=== PATIENT | female | born 2000 ===

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

== ENCOUNTER 2018-04-30 15:10 | Emergency (ER) | payer MEDICAID ==
[2018-04-30 15:10] VITALS: BMI 34.5
[2018-04-30 15:40] VITALS: O2SAT 100
[2018-04-30] MEDS ORDERED: Sodium Chloride 0.9% 1,000 ML IV STA (16:05)
[2018-04-30] MEDS ORDERED: guaiFENesin DM 200 mg-20 mg/10 ml UD PO STA (16:07)
[2018-04-30 16:59] LABS: BASO % 0.3 % (0.0-2.0); EOS # 0.1 K/uL (0.0-0.7); EOS % 1.2 % (0.0-4.0); HEMOGLOBIN 14.9 g/dL (12.0-16.0); LYMPH # 1.3 K/uL (1.0-4.3); LYMPH % 12.5 % (20.0-40.0); MEAN CELL VOLUME 87.1 fl (81.0-99.0); MEAN CORPUSCULAR HEMOGLOBIN 29.3 pg (27.0-31.0); MEAN CORPUSCULAR HGB CONC 33.7 g/dL (33.0-37.0); MEAN PLATELET VOLUME 8.4 fl (7.2-11.7); MONO # 0.8 K/uL (0.0-0.8); MONO % 7.8 % (0.0-10.0); NEUT # 8.3 K/uL (1.8-7.0); NEUT % 78.2 % (50.0-75.0); RBC 5.07 Mil/uL (3.80-5.20); WHITE BLOOD COUNT 10.7 K/uL (4.8-10.8)
[2018-04-30 17:11] LABS: ALB/GLOB RATIO 1.3 (1.0-2.1); ALBUMIN 4.4 g/dL (3.5-5.0); ALT/SGPT 54 U/L (9-52); AST/SGOT 81 U/L (14-36); BLOOD UREA NITROGEN 16 mg/dl (7-17); CALCIUM 9.1 mg/dL (8.4-10.2); GFR NON-AFRICAN AMERICAN > 60; LIPASE 52 U/L (23-300)
--- NOTE | 2018-04-30 17:11 | ED PDOC ---
HPI: Abdomen Chief Complaint (Provider): GI Problem History Per: Patient History/Exam Limitations: no limitations Onset/Duration Of Symptoms: Days Outside of [place] travel?: No Associated Symptoms: Fever, Diarrhea, Back Pain. denies: Nausea, Vomiting, Urinary Symptoms Additional Complaint(s): Patient is a 18 year old female who reports of right sided back and flank pain that started today morning. She has associated symptoms such as tactile fever and x2 days of diarrhea that consisted of 6 non bloody episodes, and cough. Patient denies taking any medications prior to arrival. She denies abdominal pain, urinary symptoms, nausea, vomiting, recent travel, rash, headache, dizziness, body ache. Patient states she does have sick contact with child who has a viral respiratory infections. Otherwise: (+) fever, (+) cough, (+) diarrhea, (-) nausea, (-) vomiting, (-) rash, (-) headache, (-) dizziness, (-) body ache, (-) paresthesias, (-) weakness, (-) acute bowel or bladder dysfunction, PMD: Kings Thorne, <Letty Nichols A - Last Filed: 04/30/18 17:08> <Sommer James - Last Filed: 04/30/18 17:50> Time Seen by Provider: 04/30/18 15:50 Chief Complaint (Nursing): GI Problem Past Medical History Reviewed: Historical Data, Nursing Documentation, Vital Signs Vital Signs: Last Vital Signs Temp 97.4 F L 04/30/18 15:39 Pulse 88 04/30/18 15:39 Resp 16 04/30/18 15:39 BP 111/57 L 04/30/18 15:39 Pulse Ox 100 04/30/18 15:39 - Medical History PMH: Gall Bladder Disease (as per CC) Denies: Depression, Diabetes, HTN, Chronic Kidney Disease - Surgical History Surgical History: Cholecystectomy, Tonsillectomy - Family History Family History: States: Diabetes, Hypertension - Immunization History Hx Tetanus Toxoid Vaccination: No Hx Influenza Vaccination: No Hx Pneumococcal Vaccination: No <Letty Nichols A - Last Filed: 04/30/18 17:08> Vital Signs: Last Vital Signs Temp 97.4 F L 04/30/18 15:39 Pulse 88 04/30/18 15:39 Resp 16 1219/18 15:39 BP 111/57 L 04/30/18 15:39 Pulse Ox 100 04/30/18 17:19 <Sommer James - Last Filed: 04/30/18 17:50> - Home Medications Home Medications: Ambulatory Orders Medication Instructions Recorded No Known Home Med 08/05/17 - Allergies Allergies/Adverse Reactions: Allergies Allergy/AdvReac Type Severity Reaction Status Date / Time No Known Allergies Allergy Verified 08/05/17 11:48 Review of Systems ROS Statement: Except As Marked, All Systems Reviewed And Found Negative Constitutional: Positive for: Fever Respiratory: Positive for: Cough Gastrointestinal: Positive for: Diarrhea. Negative for: Nausea, Vomiting, Abdominal Pain Genitourinary Female: Negative for: Dysuria, Frequency, Incontinence, Hematuria Musculoskeletal: Positive for: Back Pain (//flank pain). Negative for: Other (body ache) Neurological: Negative for: Headache, Dizziness <Letty Nichols - Last Filed: 04/30/18 17:08> Physical Exam - Reviewed Nursing Documentation Reviewed: Yes Vital Signs Reviewed: Yes - Physical Exam Comments: GENERAL APPEARANCE: Patient is awake, alert, oriented x 3, in no acute distress. SKIN: Warm, dry; (-) cyanosis. EYES: (-) conjunctival pallor. ENMT: Mucous membranes moist. NECK: (-) tenderness, (-) stiffness, (-) lymphadenopathy. CHEST AND RESPIRATORY: (-) rales, (-) rhonchi, (-) wheezes; breath sounds equal bilaterally. HEART AND CARDIOVASCULAR: (-) irregularity; (-) murmur, (-) gallop. ABDOMEN AND GI: Soft; (-) tenderness; (-) palpable mass. BACK: (-) tenderness, (-) mild spasm, (-) direct bony tenderness, (-) deformity. Straight leg raising (-) bilaterally. EXTREMITIES: (-) deformity. Distal pulses good bilaterally. NEURO AND PSYCH: Mental status as above. Intact sensation bilaterally; normal strength in extension of the knees, plantar and dorsiflexion of the toes. DTRs symmetric. <Letty Nichols - Last Filed: 04/30/18 17:08> - Laboratory Results Result Diagrams: 04/30/18 16:54 - ECG O2 Sat by Pulse Oximetry: 100 (RA) Pulse Ox Interpretation: Normal <Letty Nichols - Last Filed: 04/30/18 17:08> - Laboratory Results Result Diagrams: 04/30/18 16:54 04/30/18 16:54 Urine POC: Negative Urine dip results: Positive for: Bilirubin (small), Protein (30). Negative for: Leukocyte Esterase, Blood, Nitrate, Ketones, Glucose <Sommer James - Last Filed: 04/30/18 17:50> Medical Decision Making Medical Decision Making: Time: 1605 Impression: Cough, diarrhea, probable viral illness Plan: --CMP --Lipase --ED urine --ED urine dipstick --CXR --Robitussin DM 10 ml PO --Toradol 30 mg IVP --Zofran inj 4mg IVP --Sodium chloride 1,000 ml --blood culture --influenza A B --------- -------- Scribe Attestation: Documented by Chase Blake, acting as a scribe for Sommer Perez Provider Scribe Attestation: All medical record entries made by the Scribe were at my direction and person ally dictated by me. I have reviewed the chart and agree that the record accurately reflects my personal performance of the history, physical exam, medical decision making, and the department course for this patient. I have also personally directed, reviewed, and agree with the discharge instructions and disposition. <GriceltamarHiginioalberto Uribe - Last Filed: 04/30/18 17:08> Disposition <Letty Nichols - Last Filed: 04/30/18 17:08> <Sommer James - Last Filed: 04/30/18 17:50> - Disposition Forms: [employer] (Greek)
--- NOTE | 2018-04-30 18:03 | ED PDOC ---
HPI: Back Time Seen by Provider: 04/30/18 15:50 Chief Complaint (Nursing): GI Problem Chief Complaint (Provider): Bodyaches, Cough, Diarrhea History Per: Patient History/Exam Limitations: no limitations Additional Complaint(s): Patient is a 18 year old female who reports right sided back and flank pain that started this morning. Associated symptoms include tactile fever and x2 days of diarrhea that consisted of 6 nonbloody episodes, and a dry cough. Patient denies taking any medications prior to arrival. She denies abdominal pain, urinary symptoms, nausea, vomiting, recent travel, rash, headache, dizziness. Patient states she does have sick contact, her child, who has a viral respiratory infection. PMD: Kings Thorne LMP: 04/21/18 Past Medical History Reviewed: Historical Data, Nursing Documentation, Vital Signs Vital Signs: Last Vital Signs Temp 97.4 F L 04/30/18 15:39 Pulse 88 04/30/18 15:39 Resp 16 04/30/18 15:39 BP 111/57 L 04/30/18 15:39 Pulse Ox 100 04/30/18 17:19 - Medical History PMH: Gall Bladder Disease - Surgical History Surgical History: Cholecystectomy, Tonsillectomy - Family History Family History: States: Diabetes, Hypertension - Home Medications Home Medications: Ambulatory Orders Medication Instructions Recorded Cyclobenzaprine [Cyclobenzaprine 10 mg PO Q8 PRN #12 tab 04/30/18 HCl] Dicyclomine [Dicyclomine HCl] 10 mg PO QID PRN #12 cap 04/30/18 RX: Naproxen 500 mg PO BID PRN #20 tab 04/30/18 - Allergies Allergies/Adverse Reactions: Allergies Allergy/AdvReac Type Severity Reaction Status Date / Time No Known Allergies Allergy Verified 08/05/17 11:48 Review of Systems Constitutional: Positive for: Fever Respiratory: Positive for: Cough Gastrointestinal: Positive for: Diarrhea. Negative for: Nausea, Vomiting, Abdominal Pain Genitourinary Female: Negative for: Dysuria, Frequency, Incontinence, Hematuria Musculoskeletal: Positive for: Back Pain (/ flank pain) Neurological: Negative for: Headache, Dizziness Physical Exam - Reviewed Nursing Documentation Reviewed: Yes Vital Signs Reviewed: Yes - Physical Exam Comments: GENERAL APPEARANCE: Patient is awake, alert, oriented x 3, in no acute distress. Resting comfortably. SKIN: Warm, dry; (-) cyanosis. EYES: (-) conjunctival pallor. ENMT: Mucous membranes moist. NECK: Supple, FROM (-) tenderness, (-) stiffness, (-) lymphadenopathy. CHEST AND RESPIRATORY: (-) rales, (-) rhonchi, (-) wheezes; breath sounds equal bilaterally. Respirations even and nonlabored, speaking in full sentences. HEART AND CARDIOVASCULAR: (-) irregularity ABDOMEN AND GI: Soft; (-) tenderness (-) CVA tenderness (-) distention (-) guarding BACK: (-) midline tenderness, (+) right paralumbar tenderness (-) deformity. EXTREMITIES: (-) deformity. Distal pulses good bilaterally. NEURO AND PSYCH: Mental status as above. Intact sensation bilaterally; normal strength in extension of the knees, plantar and dorsiflexion of the toes. Gait: steady. Speech: clear. (-) facial asymmetry (-) aphasia - Laboratory Results Result Diagrams: 04/30/18 16:54 04/30/18 16:54 Urine POC: Negative Urine dip results: Positive for: Bilirubin (small), Protein (30). Negative for: Leukocyte Esterase, Blood, Nitrate, Ketones, Glucose - ECG O2 Sat by Pulse Oximetry: 100 (RA) Pulse Ox Interpretation: Normal Medical Decision Making Medical Decision Making: Time: 1605 Impression: Cough, diarrhea, body aches, probable viral illness Plan: --CMP --Lipase --ED urine --ED urine dipstick --CXR --Robitussin DM 10 ml PO --Toradol 30 mg IVP --Zofran inj 4mg IVP --Sodium chloride 1,000 ml --blood culture --influenza A B 1744 Udip reviewed. 1804 Patient reports continued back pain. Flexeril 10mg PO ordered. Patient is not driving home. CXR: no acute disease as read by Jacob MONAHAN. Labs reviewed. Potassium 20mg ordered for potassium of 3.2. 1934 Influenza: negative On re-evaluation, patient reports improvement of symptoms. On exam, patient remains AAOx3, in no acute distress. Lungs clear to auscultation, cardiac RRR, abdomen soft, non-tender, repeat neuro exam shows no focal findings. Vitals stable. Lab/Diagnostic results d/w the patient in great detail. Diagnosis of cough, back pain, diarrhea, probable viral illness d/w the patient. Based on history, exam and diagnostic results, plan will be for outpatient follow up. Patient instructed to follow-up with pmd / referral provided / the clinic in 1- 2 days without fail. Advised to take medication as prescribed. Return to the emergency room at any time for any new or worsening symptoms. Patient states she fully agrees with and understands discharge instructions. States that she agrees with the plan and disposition. Verbalized and repeated discharge instructions and plan. I have given the patient opportunity to ask any additional questions. ------- Scribe Attestation: Documented by Chase Blake, acting as a scribe for Sommer Perez Provider Scribe Attestation: All medical record entries made by the Scribe were at my direction and pers onally dictated by me. I have reviewed the chart and agree that the record accurately reflects my personal performance of the history, physical exam, medical decision making, and the department course for this patient. I have also personally directed, reviewed, and agree with the discharge instructions and disposition. Disposition - Clinical Impression Clinical Impression: Cough, Diarrhea, Back pain, Viral illness - Patient ED Disposition Is Patient to be Admitted: No Counseled Patient/Family Regarding: Studies Performed, Diagnosis, Need For Followup, Rx Given - Disposition Referrals: Kings Thorne MD [Family Provider] - Disposition: Routine/Home Disposition Time: 19:40 Condition: STABLE Additional Instructions: The emergency medical care you received today was directed at your acute symptoms. If you were prescribed any medication, please fill it and take as directed. It may take several days for your symptoms to resolve. Return to the Emergency Department if your symptoms worsen, do not improve, or if you have any other problems. Please contact your doctor in 2 days for re-evaluation and follow up / or call one of the physicians/clinics you have been referred to that are listed on the Patient Visit Information form that is included in your discharge packet. Bring any paperwork you were given at discharge with you along with any medications you are taking to your follow up visit. Our treatment cannot replace ongoing medical care by a primary care provider (PCP) outside of the emergency department. Prescriptions: Cyclobenzaprine [Cyclobenzaprine HCl] 10 mg PO Q8 PRN #12 tab PRN Reason: Muscle Spasm Dicyclomine [Dicyclomine HCl] 10 mg PO QID PRN #12 cap PRN Reason: Diarrhea RX: Naproxen 500 mg PO BID PRN #20 tab PRN Reason: Pain, Moderate (4-7) Instructions: Low Back Pain in Adults, Diarrhea in Adolescents and Adults, Cough in Adults, Upper Back Pain, Muscle and Bone Pain (DC), Viral Syndrome (DC) Forms: [employer] (Faroese) Print Language: HEBREW - POA Present On Arrival: None Results - Lab Results Lab Results: 04/30/18 04/30/18 04/30/18 18:48 16:54 16:54 WBC 10.7 RBC 5.07 Hgb 14.9 Hct 44.2 MCV 87.1 D MCH 29.3 MCHC 33.7 RDW 13.0 Plt Count 340 MPV 8.4 Neut % (Auto) 78.2 H Lymph % (Auto) 12.5 L [place] % (Auto) 7.8 Eos % (Auto) 1.2 Baso % (Auto) 0.3 Neut # (Auto) 8.3 H Lymph # (Auto) 1.3 [place] # (Auto) 0.8 Eos # (Auto) 0.1 Baso # (Auto) 0.0 Sodium 145 Potassium 3.3 L Chloride 108 H Carbon Dioxide 24 Anion Gap 16 BUN 16 Creatinine 0.7 Est GFR ( Amer) > 60 Est GFR (Non-Af Amer) > 60 Random Glucose 91 Calcium 9.1 Total Bilirubin 0.3 AST 81 H D ALT 54 H D Alkaline Phosphatase 80 Total Protein 7.8 Albumin 4.4 Globulin 3.3 Albumin/Globulin Ratio 1.3 Lipase 52 Influenza Typ A,B (EIA) Negative for flu a/b
[2018-04-30 19:00] VITALS: BP 94/54; PULSE 66; RESP 18; TEMP 98.2
[2018-04-30] MEDS ORDERED: Potassium Chloride 20 mEq ER Tab PO ONE (19:17)
--- NOTE | 2018-05-01 10:10 | RAD ---
Date of service: 04/30/2018 HISTORY: Cough and fever COMPARISON: No prior. TECHNIQUE: Chest PA and lateral FINDINGS: LINES AND TUBES: None. LUNG AND PLEURA: The lungs are well inflated and clear. No pleural effusion or pneumothorax. HEART AND MEDIASTINUM: The heart is not enlarged. No aortic atherosclerotic calcification present. The hilar and mediastinal contours are within normal limits. SKELETAL STRUCTURES: The bony structures are within normal limits for the patient's age. VISUALIZED UPPER ABDOMEN: Normal. OTHER FINDINGS: None. IMPRESSION: No active pulmonary disease.
== END 2018-04-30 20:16 | disposition home or self-care (01) ==
LOC: H.ER 15:10
DX: R05 Cough (principal); R19.7 Diarrhea, unspecified; M54.9 Dorsalgia, unspecified; B34.9 Viral infection, unspecified
CPT/HCPCS: 71046; 80053; 81025; 83690; 85025; 87040; 87804; 96361; 96374; 96375; 99284; J1885; J2405; J7030